=== PATIENT | male | born 1975 | race Caucasian/White ===

== ENCOUNTER 2019-02-17 22:45 | Emergency (ER) | payer OTHER ==
[~2019-02-17] VITALS: Ht 185.4 cm; Wt 118.0 kg
[2019-02-17 22:59] VITALS: BP 137/85
[2019-02-17] MEDS ORDERED: LIDOcaine 1% w/epiNEPHrine 1:200,000 30ml vial IM ONE (23:20)
--- NOTE | 2019-02-17 23:25 | NUR ---
Patient took a foul ball to the left frontal region. No loss of consciousness. Dip Tet is current. Wound irrigates with NaCl. PA sutured. Plan to disch to home.
== END 2019-02-18 00:18 | disposition home or self-care (01) ==
LOC: ER 22:46
DX: S01.81XA Laceration without foreign body of other part of head, initial encounter (principal); Z88.0 Allergy status to penicillin; W21.07XA Struck by softball, initial encounter; Y93.89 Activity, other specified; Y92.89 Other specified places as the place of occurrence of the external cause; Y99.8 Other external cause status
CPT/HCPCS: 12011; 99283